=== PATIENT | female | born 2000 | race Caucasian/White ===

== ENCOUNTER 2025-01-30 23:42 | Emergency (ER) | payer MEDICAID ==
[~2025-01-30] VITALS: Ht 170.2 cm; Wt 79.0 kg
[2025-01-30 23:49] VITALS: BP 138/82; PULSE 88; RESP 20; TEMP 36.9; O2SAT 98
[2025-01-31 00:19] LABS: BASOPHILS % 0.8 % (0.0-2.0); EOSINOPHILS % 2.5 % (0.0-5.0); HEMATOCRIT. 41.9 % (36.0-48.0); HEMOGLOBIN. 14.4 g/dL (12.0-16.0); LYMPHOCYTES % 38.3 % (20.0-50.0); MEAN PLATELET VOLUME 9.1 fl (7.4-10.4); MONOCYTES % 6.3 % (2.0-8.0); NEUTROPHILS % 52.1 % (40.0-76.0); PLATELET 292 x1000/uL (130-400); RED BLOOD CELL COUNT 4.57 mill/uL (4.2-5.4); RED CELL DISTRIBUTION WIDTH 13.6 % (11.6-14.6)
[2025-01-31 00:30] LABS: CREATININE 0.9 mg/dL (0.6-1.0)
[2025-01-31 00:31] LABS: UREA NITROGEN BLOOD 8 mg/dL (9-23)
[2025-01-31 00:32] LABS: ASPARTATE AMINOTRANSFERASE 22 IU/L (<34)
[2025-01-31 00:33] LABS: BILIRUBIN DIRECT 0.1 mg/dL (<=3.0); BILIRUBIN TOTAL 0.5 mg/dL (0.1-1.0); PROTEIN TOTAL 7.4 g/dL (6.0-8.3)
[2025-01-31 01:06] LABS: CLARITY URINE CLEAR (CLEAR); COLOR URINE YELLOW (YELLOW); GLUCOSE URINE NEGATIVE (NEGATIVE); KETONES URINE NEGATIVE (NEGATIVE); LEUKOCYTE ESTERASE URINE NEGATIVE (NEGATIVE); NITRITE URINE NEGATIVE (NEGATIVE); OCCULT BLOOD URINE NEGATIVE (NEGATIVE); PH URINE 5.5 (4.5-8.0); PROTEIN URINE 1+ (NEGATIVE); SPECIFIC GRAVITY URINE 1.022 (1.005-1.030); UROBILINOGEN URINE 0.2 E.U./dL (0.2-1.0)
[2025-01-31 02:59] LABS: HCG SCREEN NEGATIVE
[2025-01-31 04:43] LABS: SQUAMOUS EPITHELIAL CELL URINE FEW /lpf (RARE/1+)
[2025-01-31 04:45] LABS: BACTERIA URINE NONE SEEN; RBC URINE 0-2 /hpf (0-2); WBC URINE 0-2 /hpf (0-2)
== END 2025-01-31 03:02 | disposition left against medical advice (07) ==
LOC: ER 23:42
DX: R10.84 Generalized abdominal pain (principal)
CPT/HCPCS: 36415; 80048; 80076; 81003; 84703; 85025; 99281